=== PATIENT | female | born 1975 | race Hispanic/Latino ===

== ENCOUNTER 2020-06-28 12:26 | Emergency (ER) | payer SELFPAY ==
[2020-06-28] MEDS ORDERED: HYDROCODONE/ACETAMINOPHEN 10/325 MG TAB ONE (12:41)
== END 2020-06-28 13:11 | disposition home or self-care (01) ==
LOC: EDH 12:26
DX: S63.501A Unspecified sprain of right wrist, initial encounter (principal); S63.601A Unspecified sprain of right thumb, initial encounter; Z72.0 Tobacco use; W08.XXXA Fall from other furniture, initial encounter; Y93.89 Activity, other specified; Y92.89 Other specified places as the place of occurrence of the external cause; Y99.8 Other external cause status
CPT/HCPCS: 29125; 73110; 73130

== ENCOUNTER 2024-05-09 10:22 | Emergency (ER) | payer BC ==
[~2024-05-09] VITALS: Ht 154.9 cm; Wt 77.6 kg
--- NOTE | 2024-05-09 10:40 | ERN ---
ED Note History of Present Illness Stated Complaint: BOIL ON INNER RIGHT THIGH Time Seen by MD: 10:26 Dictation: PATIENT IS A 49-YEAR-OLD FEMALE COMING IN TODAY WITH COMPLAINTS OF A BOIL TO HER RIGHT INNER THIGH SHE HAS HAD FOR SEVERAL DAYS. NO FEVER NO CHILLS NO NAUSEA VOMITING. NO PRIMARY CARE DOCTOR, SHE STATES SHE HAS TAKEN AMOXICILLIN. Patient states it got worse after she squeezed it one week ago. Allergies: Coded Allergies: No Known Drug Allergies (Unverified Allergy, Unknown, 06/28/20) Past Medical History History: Not Applicable RN Note Reviewed/Agreed w/PFSH: Yes Review of System Dictation CONSTITUTIONAL: NEGATIVE EXCEPT FOR HPI HEAD/FACE: NEGATIVE EXCEPT FOR HPI EENT: NEGATIVE EXCEPT FOR HPI RESPIRATORY: NEGATIVE EXCEPT FOR HPI GASTROINTESTINAL/ABDOMINAL: NEGATIVE EXCEPT FOR HPI GENITOURINARY: NEGATIVE EXCEPT FOR HPI MUSCULOSKELETAL: NEGATIVE EXCEPT FOR HPI INTEGUMENTARY: NEGATIVE EXCEPT FOR HPI DRAINING LESION TO RIGHT MEDIAL THIGH SEVEN DAYS NEUROLOGICAL/PSYCH: NEGATIVE EXCEPT FOR HPI HEMATOLOGIC/LYMPHATIC: NEGATIVE EXCEPT FOR HPI ALL SYSTEMS NEGATIVE, EXCEPT NOTED ABOVE. 13 POINT REVIEW OF SYSTEMS ASSESSED AND ALL NEGATIVE EXCEPT FOR ABOVE. Initial Vital Sign VS Vital Signs Date Time Temp Pulse Resp B/P (MAP) Pulse Ox O2 Delivery O2 Flow Rate FiO2 05/09/24 10:42 98.2 88 16 113/87 98 Room Air 05/09/24 12:29 0 21 Physical Exam Dictation VITAL SIGNS REVIEWED [facility] IN ROOM GENERAL APPEARANCE: ALERT, ORIENTED X 3, NO ACUTE DISTRESS, WELL DEVELOPED, NOURISHED. HEAD AND FACE: NON-TRAUMATIC. EYES: PERRL, PINK CONJUNCTIVAS, EYELID NO TRAUMA, ANTERIOR CHAMBER WITH ARCUS SENILIS. EARS: PINNAS INTACT AND NO SIGNS OF TRAUMA OR ERYTHEMA EAR CANALS CLEAR AND NO DISCHARGE TM NO ERYTHEMA NOSE: NO DISCHARGE, NO BLEEDING. OROPHARYNX: MOUTH NORMAL, TONGUE PINK, PHARYNX CLEAR,NO ERYTHEMA, TONSILS NO EXUDATES, NO ABSCESSES NOTED, MUCOUS MEMBRANE MOIST NECK: SUPPLE, NON-TENDER, NO THYROMEGALY, NO MASSES, NO JVD, NO BRUITS BREAST:DEFERRED CHEST:NO TENDERNESS, NO CREPITUS, NO PARADOXICAL MOVEMENT, NO RETRACTIONS LUNGS:CLEAR, WELL-VENTILATED, SYMMETRIC, NO RALES, NO WHEEZING, NO RHONCHI, NO STRIDOR, GOOD BREATH SOUNDS BILATERALLY HEART: REGULAR RATE, REGULAR RHYTHM, NO MURMUR, NO GALLOPS VASCULAR: NO PERIPHERAL EDEMA, ABDOMEN: SOFT, POSITIVE BOWEL SOUNDS, NONDISTENDED, NO GUARDING, NONTENDER, NO REBOUND, NO MASSES NO HEPATOMEGALY, NO SPLENOMEGALY, NO UNGER'S SIGN, NO HERNIAS. RECTAL: DEFERRED GENITAL: DEFERRED NEUROLOGICAL: NORMAL SPEECH, MOTOR FUNCTION INTACT, SENSORY FUNCTION INTACT MUSCULOSKELETAL: NECK NONTENDER, FULL RANGE OF MOTION, BACK NONTENDER, FULL R OSMIN OF MOTION, EXTREMITIES: NONTENDER, FULL RANGE OF MOTION SKIN: COLOR PINK, DRY, PATIENT HAS A DRAINING LESION TO THE RIGHT MEDIAL THIGH APPROXIMATELY 3 CM X 5 CM. NO FLUCTUANCE. ERYTHEMA TO THE AREA NOTED. LYMPHATIC: DEFERRED Results (Laboratory/Radiology) Laboratory/Radiology Ultrasound of the lesion demonstrates questionable abscess. However it is currently draining Labs Reviewed?: Yes ED Course ED Course Orders Procedure Category Date Status Time Acetaminophen 500mg PHA 05/09/24 Complete Tab (Tylenol 500mg T 13:30 Clindamycin 150mg Cap PHA 05/09/24 Complete (Cleocin 150mg Cap 13:30 Us Soft Tissue Lower US 05/09/24 Taken Extremity 13:06 Current Medications Medications (Trade) Dose Ordered Sig/Dayan Route PRN Reason Start Time Stop Time Status Last Admin Dose Admin Acetaminophen (TYLenol 500MG TAB) 1,000 mg ONCE ONCE PO 05/09/24 13:30 05/09/24 13:31 DC 05/09/24 13:20 Clindamycin HCl (Cleocin 150mg Cap) 600 mg ONCE ONCE PO 05/09/24 13:30 05/09/24 13:31 DC 05/09/24 13:18 Vital Signs Date Time Temp Pulse Resp B/P (MAP) Pulse Ox O2 Delivery O2 Flow Rate FiO2 05/09/24 12:29 98.8 87 18 141/62 99 Room Air* 0 21 05/09/24 10:42 98.2 88 16 113/87 98 Room Air Medical Decision Making MDM Medical discharge making based on ultrasound and treatment for clindamycin. Lesion to right thigh is currently draining Patient will be told to stop amoxicillin from [place] She was loaded with clindamycin and given the name of Dr. Javier villalpando surgeon DX & DISP Disposition: Discharge Departure Impression: Primary Impression: Cellulitis of right thigh Condition: Stable Scripts Clindamycin HCl (Clindamycin HCl) 300 Mg Capsule 1 CAP PO QID for 10 Days, #40 CAP 0 Refills Prov: JIGAR BELL LIBRARY TECHNOLOGY INSTRUCTOR 05/09/24 Ibuprofen (Ibuprofen 800 mg Tab) 800 Mg Tab 800 MG PO Q8H PRN for fever or pain, #30 TAB 0 Refills Prov: JIGAR BELL LIBRARY TECHNOLOGY INSTRUCTOR 05/09/24 Additional Instructions: Follow-up with primary care provider in 1 to 2 days. Take medications as directed here in the emergency room. Okay to continue home medications unless otherwise discussed during your visit in the emergency room today. Return to your nearest emergency room if symptoms worsen or if there is no improvement. Call 911 if you need immediate assistance. Take Tylenol or Motrin [id number] as needed and if no contraindications are present. Increase oral hydration. A wound culture or urine culture was ordered here in the emergency room department please follow-up with primary care provider and advise them to get repeat ports from our facility. If you had any Jan wrap/splints that were applied here, please do not remove them until you see your primary care or specialty. Warm compresses three to 4 times a day. Stop your amoxicillin from [place], start clindamycin and take as directed until gone. Call the surgeon for an ap pointment in the next 1-2 days. Referrals: SELF,REFERRAL (PCP) JAVIER VILLALPANDO MD Time of Disposition: 14:34 I have reviewed the case, and I agree with, Diagnosis and Plan JIGAR BELL NP May 09, 2024 10:40
[2024-05-09] MEDS: CLINDAMYCIN 150 MG CAP PO ONE (13:18)
[2024-05-09] MEDS: acetaMINOPHEN 500 MG TABLET PO ONE (13:20)
[2024-05-09] MEDS ORDERED: CLIN-141 PO (14:35)
[2024-05-09] MEDS ORDERED: IBUP-2077 PO (14:35)
[2024-05-09 14:51] VITALS: BP 137/63; PULSE 88; RESP 18; TEMP 98.6; O2SAT 98
--- NOTE | 2024-05-09 15:52 | HMCIMG ---
US SOFT TISSUE LOWER EXTREMITY This measures 1.3 x 4.9 x 4.6 cm. Findings are nonspecific but this could represent abscess. There is edema in the overlying subcutaneous soft tissues. REASON: RIGHT MEDIAL THIGH SWELLING TENDERNESS WITH ERYTHEMA DRAINING COMPARISON: None TECHNIQUE: A shallow performed in the right medial thigh, area of interest. FINDINGS: There is a crescent shaped fluid collection in the deep subcutaneous soft tissues, between subcutaneous fat and underlying muscle bundles. IMPRESSION: 1. Probable fluid collection in the deep the subtalar soft tissues as described above.
== END 2024-05-09 15:14 | disposition home or self-care (01) ==
LOC: EDH 10:22
DX: L03.115 Cellulitis of right lower limb (principal)
CPT/HCPCS: 76882; 99284

== ENCOUNTER 2024-09-25 16:30 | Emergency (ER) | payer BC ==
[~2024-09-25] VITALS: Ht 165.1 cm; Wt 83.9 kg
[~2024-09-25 16:30] MED LIST: CLIN-141 PO; IBUP-2077 PO
--- NOTE | 2024-09-25 16:35 | ERN ---
ED Note History of Present Illness Stated Complaint: LEFT SIDE ABDOMINAL PAIN Time Seen by MD: 16:32 Dictation: PATIENT IS A 49-YEAR-OLD FEMALE COMING TO THE EMERGENCY ROOM VIA EMS WITH COMPLAINTS OF LEFT UPPER QUADRANT PAIN ONSET THREE DAYS PRIOR TO ARRIVAL. SHE STATES IT DOES NOT CHANGE WITH FOOD HER LAST MEAL WAS 02:00 THIS AFTERNOON THAT WAS A [employer] SANDWICH. SHE HAS HAD NO DIARRHEA NO VOMITING NO FEVER NO CHILLS NO CHEST PAIN. STATES SHE CALLED HER PRIMARY CARE DOCTOR ADVISED HER TO COME TO THE EMERGENCY ROOM. Allergies: Coded Allergies: No Known Drug Allergies (Unverified Allergy, Unknown, 06/28/20) Home Meds Active Scripts Ibuprofen (Ibuprofen 800 mg Tab) 800 Mg Tab, 800 MG PO Q8H PRN for fever or pain, #30 TAB 0 Refills Prov:JIGAR BELL NP 09/25/24 Omeprazole (Omeprazole) 40 Mg Capsule.dr, 1 CAP PO DAILY for 30 Days, #30 CAP 0 Refills Prov:JIGAR BELL NP 09/25/24 Sucralfate (Carafate) 1 Gram Tablet, 1 GM PO ACHS for 10 Days, #40 TAB Prov:JIGAR BELL NP 09/25/24 Clindamycin HCl (Clindamycin HCl) 300 Mg Capsule, 1 CAP PO QID for 10 Days, #40 CAP 0 Refills Prov:JIGAR BELL NP 05/09/24 Ibuprofen (Ibuprofen 800 mg Tab) 800 Mg Tab, 800 MG PO Q8H PRN for fever or pain, #30 TAB 0 Refills Prov:JIGAR BELL END FRAZER 05/09/24 Past Medical History Past Medical History: Other Additional Past Medical Hx: RH NEGATIVE FACTOR Surgical History: Appendectomy, BTL History: Not Applicable RN Note Reviewed/Agreed w/PFSH: Yes Review of System Dictation CONSTITUTIONAL: NEGATIVE EXCEPT FOR HPI HEAD/FACE: NEGATIVE EXCEPT FOR HPI EENT: NEGATIVE EXCEPT FOR HPI RESPIRATORY: NEGATIVE EXCEPT FOR HPI GASTROINTESTINAL/ABDOMINAL: NEGATIVE EXCEPT FOR HPI LEFT UPPER QUADRANT PAIN WITH NAUSEA GENITOURINARY: NEGATIVE EXCEPT FOR HPI MUSCULOSKELETAL: NEGATIVE EXCEPT FOR HPI INTEGUMENTARY: NEGATIVE EXCEPT FOR HPI NEUROLOGICAL/PSYCH: NEGATIVE EXCEPT FOR HPI HEMATOLOGIC/LYMPHATIC: NEGATIVE EXCEPT FOR HPI ALL SYSTEMS NEGATIVE, EXCEPT NOTED ABOVE. 13 POINT REVIEW OF SYSTEMS ASSESSED AND ALL NEGATIVE EXCEPT FOR ABOVE. Initial Vital Sign VS Vital Signs Date Time Temp Pulse Resp B/P (MAP) Pulse Ox O2 Delivery O2 Flow Rate FiO2 09/25/24 16:34 96 130/82 99 0 09/25/24 19:10 98.2 18 Room Air* 21 Physical Exam Dictation VITAL SIGNS REVIEWED GENERAL APPEARANCE: ALERT, ORIENTED X 3, MODERATE ACUTE DISTRESS, WELL DEVELOPED, NOURISHED. HEAD AND FACE: NON-TRAUMATIC. EYES: PERRL, PINK CONJUNCTIVAS, EYELID NO TRAUMA, ANTERIOR CHAMBER WITH ARCUS SENILIS. EARS: PINNAS INTACT AND NO SIGNS OF TRAUMA OR ERYTHEMA EAR CANALS CLEAR AND NO DISCHARGE TM NO ERYTHEMA NOSE: NO DISCHARGE, NO BLEEDING. OROPHARYNX: MOUTH NORMAL, TONGUE PINK, PHARYNX CLEAR,NO ERYTHEMA, TONSILS NO EXUDATES, NO ABSCESSES NOTED, MUCOUS MEMBRANE MOIST NECK: SUPPLE, NON-TENDER, NO THYROMEGALY, NO MASSES, NO JVD, NO BRUITS BREAST:DEFERRED CHEST:NO TENDERNESS, NO CREPITUS, NO PARADOXICAL MOVEMENT, NO RETRACTIONS LUNGS:CLEAR, WELL-VENTILATED, SYMMETRIC, NO RALES, NO WHEEZING, NO RHONCHI, NO STRIDOR, GOOD BREATH SOUNDS BILATERALLY HEART: REGULAR RATE, REGULAR RHYTHM, NO MURMUR, NO GALLOPS VASCULAR: NO PERIPHERAL EDEMA, ABDOMEN: SOFT, POSITIVE BOWEL SOUNDS, NONDISTENDED, NO GUARDING, LEFT UPPER QUADRANT PAIN TENDERNESS WITH PALPATION. RECTAL: DEFERRED GENITAL: DEFERRED NEUROLOGICAL: NORMAL SPEECH, MOTOR FUNCTION INTACT, SENSORY FUNCTION INTACT MUSCULOSKELETAL: NECK NONTENDER, FULL RANGE OF MOTION, BACK NONTENDER, FULL RANGE OF MOTION, EXTREMITIES: NONTENDER, FULL RANGE OF MOTION SKIN: COLOR PINK, DRY, NO TURGOR, NO RASH, NO LACERATIONS, NO ABRASIONS, NO CONTUSIONS. LYMPHATIC: DEFERRED Results (Laboratory/Radiology) Laboratory/Radiology Laboratory Tests Test 09/25/24 16:48 09/25/24 17:00 White Blood Count 7.9 K/uL (4.8-10.8) Red Blood Count 4.46 MIL/uL (4.00-5.50) Hemoglobin 12.7 g/dL (12.0-16.0) Hematocrit 36.4 % (36-48) Mean Corpuscular Volume 81.6 fL (79-99) Mean Corpuscular Hemoglobin 28.5 pg (27.0-33.0) Mean Corpuscular Hemoglobin Concent 34.9 g/dL (32.0-36.0) Red Cell Distribution Width 11.8 % (11.0-15.5) Platelet Count 234 K/uL (130-400) Mean Platelet Volume 8.7 fL (7.5-10.5) Immature Granulocyte % (Auto) 0.3 % (0-1) Neutrophils (%) (Auto) 55.7 % (40.0-77.0) Lymphocytes (%) (Auto) 36.2 % (21.0-51.0) Monocytes (%) (Auto) 4.4 % (3.0-13.0) Eosinophils (%) (Auto) 3.0 % (0.0-8.0) Basophils (%) (Auto) 0.4 % (0.0-5.0) Neutrophils # (Auto) 4.4 K/uL (1.8-7.7) Lymphocytes # (Auto) 2.9 K/uL (1.0-4.8) Monocytes # (Auto) 0.4 K/uL (0.1-1.0) Eosinophils # (Auto) 0.24 K/uL (0.00-0.70) Basophils # (Auto) 0.03 K/uL (0.00-0.20) Absolute Immature Granulocyte (auto 0.02 K/uL (0-1) Nucleated Red Blood Cells 0.0 % (0.0-0.19) Sodium Level 141 mmol/L (136-145) Potassium Level 3.8 mmol/L (3.5-5.1) Chloride Level 103 mmol/L (101-111) Carbon Dioxide Level 31 mmol/L (21-32) Blood Urea Nitrogen 11 mg/dL (7-18) Creatinine 0.7 mg/dL (0.5-1.0) Glomerular Filtration Rate Calc 106 mL/min (>90) Random Glucose 169 mg/dL (70-105) H Total Calcium 9.7 mg/dL (8.5-10.1) Lipase 124 U/L (16-77) H Urine Color COLORLESS (YELLOW) Urine Appearance CLEAR (CLEAR) Urine pH 5.5 (5.0-8.0) Urine Specific [place] 1.008 (1.001-1.031) Urine Protein NEGATIVE mg/dL (NEGATIVE) Urine Glucose (UA) NEGATIVE mg/dL (NEGATIVE) Urine Ketones NEGATIVE mg/dL (NEGATIVE) Urine Occult Blood NEGATIVE (NEGATIVE) Urine Nitrate NEGATIVE (NEGATIVE) Urine Bilirubin NEGATIVE mg/dL (NEGATIVE) Urine Urobilinogen 0.2 mg/dL (0.2-1.0) Urine Leukocyte Esterase 25 Loni/uL (NEGATIVE) H Urine RBC 0-1 /HPF (0-1) Urine WBC 2-5 /HPF (0-1) H Urine Squamous Epithelial Cells RARE /HPF (0-2) Urine Bacteria None /HPF (None Seen) Labs Reviewed?: Yes ED Course ED Course Orders Procedure Category Date Status Time Cbc With Differential LAB 09/25/24 Complete 16:32 Urinalysis Profile LAB 09/25/24 Complete 16:32 0.9%Nacl 1000ml (Ns PHA 09/25/24 Complete 1000ml) 17:00 Morphine 2mg Syg PHA 09/25/24 Complete (Morphine 2mg Syg) 17:00 Ondansetron 4mg Inj PHA 09/25/24 Complete (Zofran 4mg Inj) 17:00 Famotidine 20mg Vial PHA 09/25/24 Complete (Pepcid 20mg Vial) 17:00 Lipase LAB 09/25/24 Complete 16:32 Basic Metabolic Panel LAB 09/25/24 Complete 16:32 Ct Abdomen/Pelvis CT 09/25/24 Resulted W/Contrast 17:25 Iohexol (Omnipaque) PHA 09/25/24 Complete 17:53 Current Medications Medications (Trade) Dose Ordered Sig/Dayan Route PRN Reason Start Time Stop Time Status Last Admin Dose Admin Famotidine (Pepcid 20mg Vial) 20 mg ONCE ONCE IV 09/25/24 17:00 09/25/24 17:01 DC 09/25/24 17:21 Iohexol (Omnipaque) 35,000 mg STK-MED ONCE IV 09/25/24 17:53 09/25/24 17:54 DC Morphine Sulfate (morPHINE 2MG SYG) 2 mg ONCE ONCE IVP 09/25/24 17:00 09/25/24 17:01 DC 09/25/24 17:22 Ondansetron HCl (zoFRAN 4MG INJ) 4 mg ONCE ONCE IVP 09/25/24 17:00 09/25/24 17:01 DC 09/25/24 17:21 Sodium Chloride 1,000 ml @ 0 mls/hr ONCE ONCE IV 09/25/24 17:00 09/25/24 17:01 DC 09/25/24 17:21 Vital Signs Date Time Temp Pulse Resp B/P (MAP) Pulse Ox O2 Delivery O2 Flow Rate FiO2 09/25/24 19:10 98.2 88 18 125/79 99 Room Air* 0 21 09/25/24 16:34 96 130/82 99 0 1850/PATIENT STATES PAIN IS MARKEDLY IMPROVED AFTER TREATMENT WITH FLUIDS AND PAIN MEDS. SHE IS AWARE THAT SHE HAS A CHOLELITHIASIS AND ELEVATED LIPASE HOWEVER THERE IS NO NEED FOR ADMISSION TO THE HOSPITAL. SHE WILL BE DISCHARGED HOME WITH LOW-FAT DIET WE WILL BE GIVEN CARAFATE AND OMEPRAZOLE TOLD TO FOLLOW UP WITH DR. DEMETRA PENNINGTON IN THE NEXT 1-2 DAYS. Medical Decision Making MDM MDM: DIFFERENTIAL DIAGNOSIS: ACUTE PANCREATITIS/CHOLELITHIASIS/ACUTE GASTRITIS/ELECTROLYTE IMBALANCE/DEHYDRATION/INFECTION/UTI RATIONALE: TESTS CONSIDERED AND ORDERED SECONDARY TO SHARED DECISION MAKING INCLUDE: RADIOLOGY/LABS/UA PREVIOUS OUTSIDE RECORDS REVIEWED: OLD ER VISITS. RISK OF COMPLICATION AND/OR MORBIDITY OR MORTALITY OF PATIENT MANAGEMENT: NONE MEDICATIONS-PER MEDICATION RECONCILIATION NEED FOR HOSPITALIZATION: PATIENT DOES NOT MEET CRITERIA FOR HOSPITALIZATION. NO NEED FOR EMERGENCY MAJOR/MINOR SURGERY: NO THERE ARE NO SOCIAL CONCERNS WITH THIS PATIENT. PRESCRIPTION DRUG MANAGEMENT PRESCRIPTIONS WILL INCLUDE SYMPTOMATIC CARE PATIENT'S PRIOR EXTERNAL MEDICAL RECORDS FROM OTHER ER VISITS WERE REVIEWED BY ME INDICATED. PRIOR TESTING AND RESULTS FROM PREVIOUS VISITS WERE REVIEWED. PRIOR TESTS WERE TAKEN INTO ACCOUNT WITH MEDICAL DECISION MAKING AND RESOURCE UTILIZATION, INDEPENDENT HISTORIAN/HISTORIANS WERE USED TO OBTAIN COMPLETE MEDICAL HISTORY. I INDEPENDENTLY INTERPRETED THE TEST THAT WERE PERFORMED, RESULTS WERE REVIEWED BY ME AND CONSIDERED FINDINGS ON RADIOLOGY IF ORDERED. MEDICAL MANAGEMENT AND EXAMINATION INTERPRETATION DISCUSSIONS WERE HAD BY ME WITH OTHER QUALIFIED HEALTHCARE PROFESSIONALS INDICATED FOR THE PATIENT'S CARE. DX & DISP Disposition: Discharge Departure Impression: Primary Impression: Cholelithiasis Additional Impressions: Biliary colic, Elevated lipase, Uncontrolled diabetes mellitus Condition: Stable Scripts Ibuprofen (Ibuprofen 800 mg Tab) 800 Mg Tab 800 MG PO Q8H PRN for fever or pain, #30 TAB 0 Refills Prov: JIGAR BELL END FRAZER 09/25/24 Omeprazole (Omeprazole) 40 Mg Capsule. 1 CAP PO DAILY for 30 Days, #30 CAP 0 Refills Prov: JIGAR BELL END FRAZER 09/25/24 Sucralfate (Carafate) 1 Gram Tablet 1 GM PO ACHS for 10 Days, #40 TAB Prov: JIGAR BELL NP 09/25/24 Additional Instructions: FOLLOW-UP WITH PRIMARY CARE PROVIDER IN 1 TO 2 DAYS. TAKE MEDICATIONS DIRECTED HERE IN THE EMERGENCY ROOM. OKAY TO CONTINUE HOME MEDICATIONS UNLESS OTHERWISE DISCUSSED DURING YOUR VISIT IN THE EMERGENCY ROOM TODAY. RETURN TO YOUR NEAREST EMERGENCY ROOM IF SYMPTOMS WORSEN OR IF THERE IS NO IMPROVEMENT. CALL 911 IF YOU NEED IMMEDIATE ASSISTANCE. TAKE TYLENOL OR MOTRIN [id number] NEEDED AND IF NO CONTRAINDICATIONS ARE PRESENT. INCREASE ORAL HYDRATION. A WOUND CULTURE OR URINE CULTURE WAS ORDERED HERE IN THE EMERGENCY ROOM DEPARTMENT PLEASE FOLLOW-UP WITH PRIMARY CARE PROVIDER AND ADVISE THEM TO GET REPEAT PORTS FROM OUR FACILITY. IF YOU HAD ANY MELANIE WRAP/SPLINTS THAT WERE APPLIED HERE, PLEASE DO NOT REMOVE THEM UNTIL YOU SEE YOUR PRIMARY CARE OR SPECIALTY. FOLLOW A LOW-FAT DIET. CALL DR. PENNINGTON FOR FOLLOW UP IN THE NEXT ONE OR TWO DAYS. TAKE CARAFATE AND OMEPRAZOLE DIRECTED. Referrals: SELF,REFERRAL (PCP) DEMETRA PENNINGTON MD Time of Disposition: 18:52 I have reviewed the case, and I agree with, Diagnosis and Plan JIGAR BELL NP Sep 25, 2024 16:35 MEAGAN PINO DO Sep 26, 2024 08:24
[2024-09-25 16:56] LABS: BASOPHILS # (AUTO) 0.03 K/uL (0.00-0.20); BASOPHILS % (AUTO) 0.4 % (0.0-5.0); EOSINOPHILS # (AUTO) 0.24 K/uL (0.00-0.70); HEMATOCRIT 36.4 % (36-48); IMMATURE GRANULOCYTE ABSOLUTE 0.02 K/uL (0-1); LYMPHOCYTES # (AUTO) 2.9 K/uL (1.0-4.8); LYMPHOCYTES % (AUTO) 36.2 % (21.0-51.0); MEAN CORPUSCULAR HEMOGLOBIN 28.5 pg (27.0-33.0); MEAN CORPUSCULAR HGB CONC 34.9 g/dL (32.0-36.0); MEAN CORPUSCULAR VOLUME 81.6 fL (79-99); MONOCYTES # (AUTO) 0.4 K/uL (0.1-1.0); MONOCYTES % (AUTO) 4.4 % (3.0-13.0); NEUTROPHILS # (AUTO) 4.4 K/uL (1.8-7.7); NEUTROPHILS % (AUTO) 55.7 % (40.0-77.0); PLATELET COUNT (AUTO) 234 K/uL (130-400); RED BLOOD CELL COUNT(AUTO) 4.46 MIL/uL (4.00-5.50); RED CELL DISTRIBUTION WIDTH 11.8 % (11.0-15.5); WHITE BLOOD COUNT (AUTO) 7.9 K/uL (4.8-10.8)
[2024-09-25 17:06] LABS: CREATININE 0.7 mg/dL (0.5-1.0); POTASSIUM 3.8 mmol/L (3.5-5.1)
[2024-09-25] MEDS: ondanSETRON 4MG INJ IVP ONE (17:21)
[2024-09-25] MEDS: 0.9%NACL 1000ML 1,000 ML IV ONE (17:21)
[2024-09-25] MEDS: FAMOTIDINE 20MG VIAL IV ONE (17:21)
[2024-09-25] MEDS: morPHINE 2 MG SYG IVP ONE (17:22)
[2024-09-25 17:35] LABS: APPEARANCE,URINE CLEAR (CLEAR); BILIRUBIN,URINE NEGATIVE (NEGATIVE); COLOR,URINE COLORLESS (YELLOW); GLUCOSE, URINE (UA) NEGATIVE (NEGATIVE); KETONES,URINE NEGATIVE (NEGATIVE); LEUKOCYTE ESTERASE ,URINE 25 Leu/uL (NEGATIVE); NITRATE,URINE NEGATIVE (NEGATIVE); OCCULT BLOOD,URINE NEGATIVE (NEGATIVE); PH,URINE 5.5 (5.0-8.0); PROTEIN,URINE NEGATIVE (NEGATIVE); UROBILINOGEN,URINE 0.2 mg/dL (0.2-1.0)
[2024-09-25 17:41] LABS: ADD UA MICROSCOPIC YES
[2024-09-25 17:42] LABS: RBC,URINE 0-1 /HPF (0-1); SQUAMOUS EPITHELIAL CELL,UR RARE /HPF (0-2)
[2024-09-25] MEDS ORDERED: IOHEXOL 350 MG/ML 100ML INFUS..BTL IV ONE (17:53)
--- NOTE | 2024-09-25 18:19 | HMCIMG ---
Exam Type: CT ABDOMEN/PELVIS W/CONTRAST Clinical Information: Left upper and lower quadrant pain tenderness 3-4 days Comparison: None Contrast: 100 cc's Isovue 370 IV, no complications or adverse reactions CT Dose Index (CTDI): 31.60 mGy Dose Length Product (DLP): 1740.80 total mGy-cm Findings: No evidence of nephro or ureterolithiasis is found. No hydronephrosis or ureteral dilatation is seen. The lung bases are clear. The stomach is unremarkable. It shows no wall thickening. No gross ulceration is seen. It is not overly distended. There are no surrounding inflammatory changes. No wall lesions are identified to suggest cancer. The spleen is unremarkable. It is not enlarged. The pancreas shows normal anatomy. It is not fatty replaced. It shows no lesions. The pancreatic duct is not dilated. There is evidence of cholelithiasis. No evidence of acute or chronic inflammation is seen. The adrenal glands are unremarkable. There is no enlargement. No lesions are noted. The liver is unremarkable. It shows no focal masses. The appendix is unremarkable. It shows no evidence of inflammation. No appendicolith is seen. The small bowel is unremarkable. There is no evidence of dilatation to suggest obstruction. No evidence of adynamic ileus is seen. There is no small bowel wall thickening to suggest enteritis. The colon is unremarkable. The urinary bladder is unremarkable. There is no wall thickening to suggest tumor or inflammation. There are no intraluminal calculi. There are no diverticula. There is no evidence of chronic bladder outlet obstruction. There is no evidence of urinary bladder distention to suggest urinary retention. The other pelvic structures are unremarkable. The bony and vascular structures are unremarkable for the patient's age. IMPRESSION: Cholelithiasis. This study was performed using dose reduction techniques to include automated exposure control and/or adjustment of the mA and/or kV according to patient size.
[2024-09-25] MEDS ORDERED: OMEP40CA21 PO (18:54)
[2024-09-25] MEDS ORDERED: SUCR1TAB28 PO (18:54)
[2024-09-25 19:10] VITALS: BP 125/79; PULSE 88; RESP 18; TEMP 98.2; O2SAT 99
== END 2024-09-25 19:19 | disposition home or self-care (01) ==
LOC: EDH 16:30
DX: K80.70 Calculus of gallbladder and bile duct without cholecystitis without obstruction (principal); E11.65 Type 2 diabetes mellitus with hyperglycemia; R74.8 Abnormal levels of other serum enzymes; Z79.899 Other long term (current) drug therapy; Z90.49 Acquired absence of other specified parts of digestive tract; Z98.51 Tubal ligation status
CPT/HCPCS: 99284; 74177; 96374; 96375; 96361; 80048; 83690; 85025; 81001; 36415; J3490; J2270; J7030; J2405; Q9967